=== PATIENT | male | born 1955 | race African-American/Black ===

== ENCOUNTER 2017-03-03 11:59 | Emergency (ER) | payer OTHER ==
--- NOTE | ~2017-03-03 | CT71 ---
[facility] A Service of [facility] RADIOLOGY TEXT RESULTS PATIENT: TONG SALDANA LOCATION: SED : 55 UNIT #: [id number] AGE: [address]: Chandler Raymundo MD SEX: M ORDER DR: [id number] [place] [id number] E MR#: [id number] Acc #: [id number] NAME: TONG SALDANA : 1955 SEX: M STUDY DATE/TIME: 03/03/2017 11:51 UNIT: SED ROOM: STUDY DESCRIPTION: CT Head Wo Contrast Attending Physician: Chandler Raymundo M.D. Ordering Physician: Chandler Raymundo M.D. Primary Care Physician: Erwin Pepe M.D. MEDICAL IMAGING REPORT This report is preliminary unless electronic signature is present. EXAM CT of the head without contrast INDICATION Left arm pain and heavy feeling starting today. TECHNIQUE Axial CT images were obtained from the vertex of the skull through the skull base no intravenous contrast was administered. This CT exam was performed with one or more of the following radiation dose reduction techniques: automatic control, adjustment of mA and/or kV according to patient size, and iterative reconstruction. FINDINGS No acute intracranial hemorrhage is identified. Brain parenchyma is normal in attenuation with no focal areas of decreased attenuation seen. There is no midline shift or mass effect, I do think the patient probably does have some mild microangiopathic disease I am not convinced I can see focal areas of decreased attenuation. Visualized paranasal sinuses and mastoid air cells appear clear. No aggressive osseous abnormalities are seen. No focal soft tissue abnormalities are seen. IMPRESSION 1. No definite acute intracranial process is identified. Specifically there is no evidence of acute hemorrhage, mass lesion or acute infarct. If symptoms persist further evaluation with MRI could be considered. 2. Mild microangiopathic disease. Dictated by... [facility] A Service of [facility] RADIOLOGY TEXT RESULTS PATIENT: TONG SALDANA LOCATION: SED : 55 UNIT #: [id number] AGE: [address]: Chandler Raymundo MD SEX: M ORDER DR: Nidia Cox M.D. THIS IS AN ELECTRONICALLY VERIFIED REPORT Nidia Cox M.D. at 03/06/2017 1:00 PM AFF/rnr TD: 03/04/2017 05:44 JOB #: [id number] MEDICAL IMAGING REPORT Page 1 of 1
--- NOTE | ~2017-03-03 | EKG ---
PATIENT: TONG SALDANA UNIT #: [id number] Ventricular Rate: 84 BPM Atrial Rate: 84 BPM P-R Interval: 134 ms QRS Duration: 84 ms Q-T Interval: 372 ms QTC Calculation(Bezet): 439 ms P Bolckow: 72 degrees Calculated R Bolckow: 21 degrees Calculated T Bolckow: -3 degrees Diagnosis Line: Normal sinus rhythm Diagnosis Line: Normal ECG Diagnosis Line: When compared with ECG of 08-NOV-2015 11:36, Diagnosis Line: No significant change was found Diagnosis Line: Confirmed by SACHA BEASLEY MD ([id number]) on 03/15/2017 Diagnosis Line: 11:46:11 AM INTERPRETING MD: GALE BARNETT
--- NOTE | ~2017-03-03 | CR72 ---
[facility]. [facility] A Service of [facility] RADIOLOGY TEXT RESULTS PATIENT: TONG SALDANA LOCATION: SED : 55 UNIT #: [id number] AGE: [address]: Chandler Raymundo MD SEX: M ORDER DR: [id number] [address] [address] [id number] E MR#: [id number] Acc #: [id number] NAME: TONG SALDANA : 1955 SEX: M STUDY DATE/TIME: 03/03/2017 11:35 UNIT: SED ROOM: STUDY DESCRIPTION: CR Chest Single View Portable Attending Physician: Chandler Raymundo M.D. Ordering Physician: Chandler Raymundo M.D. Primary Care Physician: Erwin Pepe M.D. MEDICAL IMAGING REPORT This report is preliminary unless electronic signature is present. EXAM Portable chest 03/03/2017 HISTORY Shortness of air for a couple of days. COMPARISON Chest 11/14/2016. FINDINGS Frontal chest demonstrates clear lungs. No pleural effusion or pneumothorax. Heart size and mediastinum are normal. Pulmonary vasculature normal. IMPRESSION No acute cardiopulmonary findings Dictated by... Brady Thao M.D. THIS IS AN ELECTRONICALLY VERIFIED REPORT Brady Thao M.D. at 03/04/2017 8:14 AM SHIREEN/milagro TD: 03/04/2017 05:48 JOB #: [id number] MEDICAL IMAGING REPORT Page 1 of 1
[2017-03-03 11:41] LABS: BASOPHIL# 0.1 X10e3 (0-0.3); BASOPHIL% 0.9 % (0-2.5); DIFF IND NO; EOSINOPHIL# 0.2 X10e3 (0-0.7); EOSINOPHIL% 1.8 % (0.0-7.0); HEMATOCRIT 42.7 % (38.0-50.0); HEMOGLOBIN 14.1 gm/dL (13.0-16.0); LYMPHOCYTE# 3.8 X10e3 (1.0-3.5); LYMPHOCYTE% 35.6 % (17.0-45.0); MEAN CELL VOLUME 86.8 FL (83-96); MEAN CORPUSCULAR HEMOGLOBIN 28.7 PG (28-34); MEAN PLATELET VOLUME 8.8 FL (6.5-11.5); MONOCYTE# 1.1 X10e3 (0-1.0); MONOCYTE% 10.3 % (3.0-12.0); NEUTROPHIL# 5.5 X10e3 (1.5-7.1); NEUTROPHIL% 51.4 % (40-75); PLATELET COUNT 232 X10e3 (140-420); RED BLOOD COUNT 4.91 X10e (3.90-5.60); RED CELL DISTRIBUTION WIDTH 14.3 % (11.0-15.5); WHITE BLOOD COUNT 10.7 X10e3 (4.0-10.5)
[2017-03-03 11:56] LABS: POC - CKMB <1.0 ng/mL (0.0-7.9)
[2017-03-03 11:57] LABS: POC - TROPONIN <0.05 ng/mL (<=0.05)
[~2017-03-03 11:59] MED LIST: BLOOD PRESSURE MED; FLEXERIL10 MG PO; HYDROCODONE/APA1 T16 PO; LORTAB 10-3251 EACH; NORVASC10 MG PO; NSAIDS; PREDNISONE PO; ZYRTEC PO
[2017-03-03 12:00] LABS: ALBUMIN SERUM 4.1 g/dL (3.5-5.0); ALKALINE PHOSPHATASE 87 U/L (32-92); ALT (SGPT) 20 U/L (10-40); AST (SGOT) 21 U/L (10-42); BILIRUBIN,TOTAL 0.8 mg/dL (0.2-2.0); BLOOD UREA NITROGEN 27 mg/dL (9-23); BUN/CREATININE RATIO 19.28; CALCIUM SERUM 9.4 mg/dL (8.4-10.2); CARBON DIOXIDE 22 mmol/L (22-31); CHLORIDE 109 mmol/L (100-111); CREATININE SERUM 1.4 mg/dL (0.6-1.4); GLOM FILT RATE Estimated 53.5 mL/min (>60); GLUCOSE FASTING 141 mg/dL (70-110); POTASSIUM 3.7 mmol/L (3.5-5.1); PROTEIN TOTAL SERUM 8.5 g/dL (6.0-8.3); SODIUM 136 mmol/L (135-145)
[2017-03-03 12:04] LABS: BILIRUBIN, DIRECT <0.1 mg/dL (0.0-0.2); BILIRUBIN,INDIRECT 0.7 mg/dL (0.0-0.9)
[2017-03-03 13:20] LABS: POC - CKMB <1.0 ng/mL (0.0-7.9); POC - TROPONIN <0.05 ng/mL (<=0.05)
[2017-06-27] MEDS ORDERED: LORTAB 10-3251 EACH PO (09:09)
[2017-06-27] MEDS ORDERED: OMEPRAZOLE20 M1 PO (09:10)
[2017-06-27] MEDS ORDERED: DIOVAN320 MG PO (09:10)
[2017-06-27] MEDS ORDERED: ZYRTEC10 M1 PO (09:10)
== END 2017-03-03 14:07 | disposition home or self-care (01) ==
LOC: SED 11:59
PROVIDERS: Emergency Medicine
DX: R07.89 Other chest pain (principal); R06.02 Shortness of breath; I10 Essential (primary) hypertension; F17.200 Nicotine dependence, unspecified, uncomplicated; Z98.890 Other specified postprocedural states
CPT/HCPCS: 36415; 70450; 71010; 80048; 80076; 82553; 84484; 85025; 93005; 99284

== ENCOUNTER → 2017-06-27 | Day surgery (SDC) | payer OTHER ==
[~2017-06-27] MED LIST changes: +DIOVAN320 MG PO; +LORTAB 10-3251 EACH PO; +OMEPRAZOLE20 M1 PO; +ZYRTEC10 M1 PO
--- NOTE | ~2017-06-27 | OR ---
Unit #: [id number] #: [id number] Patient: TONG SALDANA [id number] [address] [address] [id number] O MR#: [id number] NAME: TONG SALDANA ROOM: Date of Procedure: 06/27/2017 Admission Date: 06/27/2017 Surgeon: Robbie Taylor M.D. : 1955 Attending Physician: Robbie Taylor M.D. Primary Care Physician: Erwin Pepe M.D. OPERATIVE REPORT JOB NOTE: VERIFY CC TO DRLion SALGADOS PROCEDURE PERFORMED Colonoscopy to cecum with snare polypectomy. INDICATION FOR PROCEDURE History of polyps in the past. MEDICATIONS Monitored anesthesia. POSTOPERATIVE FINDINGS 1. Two polyps in the transverse colon 3 to 4 mm, snared and sent for histopathology. 2. Sigmoid colon, 4 polyps, 3 to 4 mm, snared and sent for histopathology. 3. Hemoclip was applied to one of the transverse colon for persistent bleeding. 4. Internal hemorrhoids. 5. Good prep. PLAN Follow up on pathology report and repeat colonoscopy in 5 years. DESCRIPTION OF PROCEDURE The patient was explained of the procedure risks and benefits along with risks and benefits of anesthesia. He was brought to the endoscopy room. Propofol anesthesia was given. Rectal exam was done, which was normal. Colonoscope was lubricated, passed up the rectum, advanced under direct vision all the way to the cecum. Cecum was identified by ileocecal valve and appendiceal orifice. Multiple polyps were seen as described, they were all snared and sent for histopathology. Hemoclip was applied to the polys in the transverse colon. I retroflexed in the rectum, internal hemorrhoids seen. The scope was gently pulled out. He tolerated it well. Dictated by... Ashkan Barrow/bindu TD: 06/27/2017 13:50 JOB #: [id number] Unit #: [id number] #: [id number] Patient: TONG SALDANA OPERATIVE REPORT Page 1 of 1 X Robbie Taylor MD PROCEDURE OPERATIVE NOTE
== END | disposition home or self-care (01) ==
LOC: COPS 08:24
DX: Z12.11 Encounter for screening for malignant neoplasm of colon (principal); D12.5 Benign neoplasm of sigmoid colon; K63.5 Polyp of colon; K64.8 Other hemorrhoids; I10 Essential (primary) hypertension; K21.9 Gastro-esophageal reflux disease without esophagitis; F17.210 Nicotine dependence, cigarettes, uncomplicated; Z86.010 Personal history of colon polyps; Z79.899 Other long term (current) drug therapy; Z98.890 Other specified postprocedural states
CPT/HCPCS: 88305; J2250